=== PATIENT | female | born 1995 | race Caucasian/White ===

== ENCOUNTER → 2020-07-02 09:55 | Outpatient (BNVA) | payer OTHER, SELFPAY | PROVIDERS: Family Provider Family Medicine; Visit Provider Nurse Practitioner Women's Health | DX: N93.0 Postcoital and contact bleeding (principal) | CPT/HCPCS: 87491; 87591; 87661 ==

== ENCOUNTER → 2020-08-09 14:35 | Outpatient (BNVA) | payer OTHER, SELFPAY | PROVIDERS: Family Provider Family Medicine; Visit Provider Nurse Practitioner Women's Health | DX: Z30.430 Encounter for insertion of intrauterine contraceptive device (principal) | CPT/HCPCS: 81025 ==

== ENCOUNTER → 2021-12-26 10:04 | Outpatient (BNVA) | payer OTHER, SELFPAY | PROVIDERS: Family Provider Family Medicine; Visit Provider Nurse Practitioner Family | DX: Z20.822 Contact with and (suspected) exposure to COVID-19 (principal); R68.89 Other general symptoms and signs | CPT/HCPCS: 87400; 87635 ==

== ENCOUNTER → 2023-04-08 09:00 | Outpatient (BNVA) | payer MEDICAID, SELFPAY | PROVIDERS: Family Provider Family Medicine; Visit Provider Nurse Practitioner Women's Health | DX: Z12.4 Encounter for screening for malignant neoplasm of cervix (principal); Z30.9 Encounter for contraceptive management, unspecified; Z30.432 Encounter for removal of intrauterine contraceptive device | CPT/HCPCS: 88175 ==

== ENCOUNTER → 2023-05-27 09:24 | Outpatient (BNVA) | payer MEDICAID, SELFPAY | PROVIDERS: Family Provider Family Medicine; PCP Family Medicine; Visit Provider Nurse Practitioner Women's Health | DX: N92.6 Irregular menstruation, unspecified (principal); Z30.9 Encounter for contraceptive management, unspecified | CPT/HCPCS: 84702 ==

== ENCOUNTER → 2023-07-07 13:49 | Outpatient (BNVA) | payer MEDICAID, SELFPAY | PROVIDERS: Family Provider Family Medicine; PCP Family Medicine; Visit Provider Nurse Practitioner Women's Health | DX: N92.6 Irregular menstruation, unspecified (principal) | CPT/HCPCS: 84144 ==

== ENCOUNTER → 2024-04-21 09:35 | Outpatient (BNVA) | payer OTHER, SELFPAY | PROVIDERS: Family Provider Family Medicine; PCP Family Medicine; Visit Provider Nurse Practitioner Women's Health | DX: N92.6 Irregular menstruation, unspecified (principal); E28.2 Polycystic ovarian syndrome | CPT/HCPCS: 81025; 83036; 84439; 84443; 84702 ==

== ENCOUNTER → 2024-04-27 08:28 | Outpatient (BNVA) | payer OTHER, SELFPAY | PROVIDERS: Family Provider Family Medicine; PCP Family Medicine; Visit Provider Nurse Practitioner Women's Health | DX: Z34.90 Encounter for supervision of normal pregnancy, unspecified, unspecified trimester (principal) | CPT/HCPCS: 76801 ==

== ENCOUNTER → 2024-05-02 09:50 | Outpatient (BNVA) | payer OTHER, SELFPAY | PROVIDERS: Family Provider Family Medicine; PCP Family Medicine; Visit Provider Nurse Practitioner Women's Health | DX: Z34.90 Encounter for supervision of normal pregnancy, unspecified, unspecified trimester (principal) | CPT/HCPCS: 80307; 84315; 85025; 86592; 86762; 86803; 86850; 86900; 87086; 87340; 87806 ==

== ENCOUNTER → 2024-05-29 11:12 | Outpatient (BNVA) | payer OTHER, SELFPAY | PROVIDERS: Family Provider Family Medicine; PCP Family Medicine; Visit Provider Nurse Practitioner Women's Health | DX: Z34.80 Encounter for supervision of other normal pregnancy, unspecified trimester (principal) | CPT/HCPCS: 76801; 84315; 87491; 87591 ==

== ENCOUNTER → 2024-07-20 09:46 | Outpatient (BNVA) | payer OTHER, MEDICAID, SELFPAY | PROVIDERS: Family Provider Family Medicine; PCP Family Medicine; Visit Provider Nurse Practitioner Women's Health | DX: Z36.2 Encounter for other antenatal screening follow-up (principal); Z3A.20 20 weeks gestation of pregnancy | CPT/HCPCS: 76805 ==

== ENCOUNTER → 2024-08-17 09:23 | Outpatient (BNVA) | payer OTHER, MEDICAID, SELFPAY | PROVIDERS: Family Provider Family Medicine; PCP Family Medicine; Visit Provider Nurse Practitioner Women's Health | DX: Z34.80 Encounter for supervision of other normal pregnancy, unspecified trimester (principal); Z36.2 Encounter for other antenatal screening follow-up; Z3A.23 23 weeks gestation of pregnancy | CPT/HCPCS: 76816; 82950; 84315; 87491; 87591 ==

== ENCOUNTER → 2024-09-15 09:21 | Outpatient (BNVA) | payer OTHER, MEDICAID, SELFPAY | PROVIDERS: Family Provider Family Medicine; PCP Family Medicine; Visit Provider Obstetrics & Gynecology | DX: Z34.80 Encounter for supervision of other normal pregnancy, unspecified trimester (principal) | CPT/HCPCS: 84315; 85025 ==

== ENCOUNTER 2024-10-30 12:52 | Outpatient (CLI) | payer OTHER, MEDICAID, SELFPAY ==
[2024-10-30 13:10] VITALS: BP 130/88; PULSE 101
[2024-10-30 13:15] VITALS: BMI 33.5
[2024-10-30 13:48] LABS: Bilirubin Urine Negative (Negative); Blood Urine Negative (Negative); Glucose Urine UA Negative (Normal); Ketones Urine Trace (Negative); Leukocyte Esterase Urine Negative (Negative); Nitrate Urine Negative (Negative); Protein Urine 1+ (Negative); Urine Appearance Clear (CLEAR); Urine Color Dark Yellow (Yellow)
[2024-10-30 13:56] LABS: Add Urine Microscopic? YES; Bacteria Urine None Seen /hpf; Hyaline Casts Urine 3.71 /lpf; RBC Urine 0-2 /hpf (0-2); Squamous Epithelial Cell Urine 0-5 /hpf (0-5); WBC Urine 0-5 /hpf (0-5)
[2024-10-30 14:27] LABS: Specific Gravity, Urine 1.033 (1.005-1.030)
[2024-10-30 14:28] LABS: UA Slide Review UA Slide Review Perf
[2024-10-30 14:35] VITALS: BP 124/77; PULSE 88
[2024-10-30 16:48] VITALS: BP 123/71; PULSE 75
== END 2024-10-30 16:58 | disposition home or self-care (01) ==
LOC: OPOB 12:59 → OBGYN 13:05
PROVIDERS: Family Provider Family Medicine; PCP Family Medicine; Visit Provider Obstetrics & Gynecology
DX: O26.899 Other specified pregnancy related conditions, unspecified trimester (principal); Z3A.00 Weeks of gestation of pregnancy not specified; N89.8 Other specified noninflammatory disorders of vagina
CPT/HCPCS: 59025; 81001; 99211

== ENCOUNTER → 2024-11-10 08:03 | Outpatient (BNVA) | payer OTHER, MEDICAID, SELFPAY | PROVIDERS: Family Provider Family Medicine; PCP Family Medicine; Visit Provider Nurse Practitioner Women's Health | DX: Z34.80 Encounter for supervision of other normal pregnancy, unspecified trimester (principal) | CPT/HCPCS: 84315; 87081 ==

== ENCOUNTER → 2024-11-15 09:31 | Outpatient (BNVA) | payer OTHER, MEDICAID, SELFPAY | PROVIDERS: Family Provider Family Medicine; PCP Family Medicine; Visit Provider Nurse Practitioner Women's Health | DX: Z36.9 Encounter for antenatal screening, unspecified (principal) | CPT/HCPCS: 76816 ==

== ENCOUNTER → 2024-11-20 10:11 | Outpatient (BNVA) | payer OTHER, MEDICAID, SELFPAY | PROVIDERS: Family Provider Family Medicine; PCP Family Medicine; Visit Provider Nurse Practitioner Women's Health | DX: O41.00X0 Oligohydramnios, unspecified trimester, not applicable or unspecified (principal) | CPT/HCPCS: 76819 ==

== ENCOUNTER 2024-11-21 19:00 | Outpatient (CLI) | payer OTHER, MEDICAID, SELFPAY ==
[2024-11-21 19:16] VITALS: BP 140/80; PULSE 76
--- NOTE | 2024-11-21 19:43 | USR_ITS ---
PROCEDURE INFORMATION: Exam: US Biophysical Profile Without Non-Stress Test Exam date and time: 11/21/2024 7:58 PM Age: 29 years old Clinical indication: Pain indication: Diffuse abdominal pain, only bpp is ordered. ; Additional info: Low tani, abd tenderness TECHNIQUE: Imaging protocol: US biophysical profile without non-stress testing. COMPARISON: US OB BPP wo NST [id number] 11/20/2024 10:17 AM FINDINGS: heart rate: 131 bpm presentation and position: Cephalic Placenta: Anterior grade 1 placenta without previa. Amniotic fluid (Qualitative): Luminal volume. Amniotic fluid index: TANI is 9.56 cm. Maximum vertical pocket 4.8 cm. BIOPHYSICAL PROFILE: breathing (BPP): 2 /2 gross body movement (BPP): 2 /2 tone (BPP): 2 /2 Amniotic fluid (BPP): 2 /2 Biophysical profile score (BPP): 8 /8 MATERNAL ANATOMY: Cervix: Cervical length measures 3.5 cm. US/US OB BPP NST [id number] IMPRESSION: 1. Biophysical profile score 8/8. 2. Low-normal amniotic fluid quantity.
== END 2024-11-21 20:46 | disposition home or self-care (01) ==
LOC: OPOB 19:01 → OBGYN 19:02
PROVIDERS: Family Provider Family Medicine; PCP Family Medicine; Visit Provider Obstetrics & Gynecology
DX: O26.899 Other specified pregnancy related conditions, unspecified trimester (principal); Z3A.00 Weeks of gestation of pregnancy not specified
CPT/HCPCS: 59025; 76819; 99211

== ENCOUNTER → 2024-11-24 09:27 | Outpatient (BNVA) | payer OTHER, MEDICAID, SELFPAY | PROVIDERS: Family Provider Family Medicine; PCP Family Medicine; Visit Provider Obstetrics & Gynecology | DX: Z34.80 Encounter for supervision of other normal pregnancy, unspecified trimester (principal) | CPT/HCPCS: 84315 ==

== ENCOUNTER → 2024-12-01 09:23 | Outpatient (BNVA) | payer OTHER, MEDICAID, SELFPAY | PROVIDERS: Family Provider Family Medicine; PCP Family Medicine; Visit Provider Obstetrics & Gynecology | DX: Z34.80 Encounter for supervision of other normal pregnancy, unspecified trimester (principal) | CPT/HCPCS: 84315 ==

== ENCOUNTER 2024-12-05 22:29 | Inpatient (IN) | payer OTHER, MEDICAID, SELFPAY ==
[2024-12-05 22:01] VITALS: BMI 32.9
[2024-12-05 22:11] VITALS: BP 128/90; PULSE 94
[2024-12-05 22:59] LABS: Basophils % 0.1 %; Eosinophils % 0.4 %; Hematocrit 37.3 % (36-47); Lymphocytes # 2.3 10^3/uL (0.8-4.8); Lymphocytes % 27.8 %; Mean Corpuscular HGB Conc 33.2 g/dL (30-55); Mean Corpuscular Hemoglobin 29.2 pg (27-33); Mean Platelet Volume 13.7 fL (7.4-10.4); Monocytes # 0.5 10^3/uL (0.2-0.9); Monocytes % 5.8 %; Neutrophils % 65.4 %; Nucleated Red Blood Cells % 0 %; Platelet Count 144 10^3/cmm (157-399); Red Blood Count 4.24 10^6/uL (3.85-5.65); Red Cell Distribution Width 12.8 % (12.1-15.1); White Blood Count 8.26 10^3/uL (3.29-11.43)
[2024-12-05 23:11] VITALS: BP 121/73; PULSE 89
[2024-12-05] MEDS: miSOPROStol 100 mcg tablet 25 MCG VAGINAL (23:36)
[2024-12-05 23:41] VITALS: BP 120/79; PULSE 83
[2024-12-06] VITALS (89 sets, daily range): BP systolic 91–153; BP diastolic 47–98; PULSE 58–181; RESP 16; TEMP 36.2–36.8; O2SAT 97–100
[2024-12-06] MEDS: dextrose 5%-lactated ringers 1,000 ML 125 ML IV (03:00)
[2024-12-06] MEDS: miSOPROStol 100 mcg tablet 25 MCG VAGINAL (04:00)
[2024-12-06] MEDS: ondansetron 2 mg/ML SDV 2 mL 4 MG IVP ×2 (05:58→10:14)
[2024-12-06] MEDS: sodium chloride 0.9% 1,000 ML 999 ML IV ×2 (06:01→07:05)
[2024-12-06] MEDS: ROPivacaine syringe 100 MG/50 ML SYRINGE 10 MG EPIDURAL ×2 (07:28→10:14)
--- NOTE | 2024-12-06 07:38 | P.ANESASSM_ITS ---
Pre-Anesthetic Assessment Height/Weight: Height 1.65 m Weight 89.811 kg Temp Pulse BP Pulse Ox O2 Del Method 97.2 F L 76 121/58 99 Room Air 12/06/24 07:36 12/06/24 07:35 12/06/24 07:33 12/06/24 07:35 12/05/24 22:25 Epidural Familial anesthetic complications: None Was Beta Anna taken within 24 hours: N/A Was Clonidine taken within 24 hours: N/A Social No alcohol and No tobacco Exam alert, oriented x 3, clear to auscultation bilaterally and regular rate & rhythm Airway Mallampati: Class I Dentition: full Metabolic PCOS Anesthetic Plan ASA status: 2 Anesthesia: Regional (specify below) Risk of > 500 ml blood loss (7ml/kg in children): Yes, adequate IV access and fluids planned Medications/Allergies Home Medications Medication Instructions Recorded Confirmed Last Taken Type prenat.vits,[place],[id number]-[id number] 1 tab PO DAILY 04/08/23 12/01/24 10/30/24 History sertraline 25 mg tablet (Zoloft) 25 mg PO DAILY #30 tabs 08/17/24 12/01/24 10/30/24 Rx amitriptyline 25 mg tablet 25 mg PO DAILY #30 tabs 09/27/24 12/01/24 Unknown Rx propranolol 20 mg tablet 20 mg PO BID #60 tabs 09/27/24 12/01/24 Unknown Rx tylenol PO 09/27/24 12/01/24 Unknown History omeprazole 40 mg capsule,delayed 40 mg PO DAILY #30 caps 11/10/24 12/01/24 Unknown Rx release Allergies Allergy/AdvReac Type Severity Reaction Status Date / Time latex Allergy Mild Rash Verified 12/01/24 07:36 Penicillins Allergy Mild Rash Verified 12/01/24 07:36 Current Medications Generic Name Dose Route Start Last Admin Trade Name Freq PRN Reason Stop Dose Admin Dextrose/Lactated Ringer's 1,000 mls @ 125 mls/hr 12/05/24 22:30 12/06/24 06:01 Dextrose 5%-Lactated Ringers IV 0 mls/hr .Q8H JOSE Infusion Sodium Chloride 1,000 mls @ 999 mls/hr 12/06/24 05:28 12/06/24 07:05 Sodium Chloride 0.9% IV 999 mls/hr .Q1H1M PRN Administration See label comments Ondansetron HCl 4 mg 12/05/24 22:29 12/06/24 05:58 Ondansetron 2 Mg/Ml Sdv 2 Ml IVP 4 mg Q4H PRN Administration NAUSEA AND VOMITING PFSH Anesthesia Medical History Migraine without aura No pertinent past medical history neghx: htn,dm,thyroid,dvt/pe Surgical History H/O dilation and curettage (~11/2023) blighted ovum of twin preg- performed by [facility] History of tonsillectomy (2013) Family History Grandmother Breast cancer Paternal Hyperlipidemia Paternal Diabetes Paternal/Maternal Family/Other Breast cancer Maternal aunt Father Hypertension Grandfather Diabetes Paternal/Maternal Denies family history of Colon cancer Ovarian cancer Heart disease Family history of thyroid problem Uterine cancer Stroke Social History Smoking and tobacco/nicotine status: never used tobacco/nicotine Female Reproductive History : 4 Data Anesthesia 12/05/24 20:22 Short CBC 12/05/24 Range/Units 20:22 WBC 8.26 (3.29-11.43) 10^3/uL Hgb 12.40 (11.27-16.99) g/dL Hct 37.3 (36-47) % MCV 88.0 (85-98) fl Plt Count 144 L (157-399) 10^3/cmm Neut % (Auto) 65.4 % Neut # (Auto) 5.40 (1.8-7.7) 10^3/uL Blood Bank 12/05/24 20:22 Blood Type O Positive Rho(D) Type Rh positive Antibody Screen Negative Cardiac Studies: 2 No Data to Display
--- NOTE | 2024-12-06 07:40 | ANES.PROC ---
Anesthesia Procedures Procedure/Date: 12/06/24 Epidural: Time Out Performed: Yes Consents Signed: Procedure Consent Consent: requested by attending/covering physician, from patient, from other, risks and benefits reviewed and patient agrees to proceed Lumbar Level: L3-L4 Epidural position: sitting Epidural procedure: sterile prep of area, 1% lidocaine to numb the area, 18 g needle, negative for paresthesia passed, neg for paresthesia, test dose given, 1.5% xylocaine 1:200k epi (5), 0.2% Ropivacaine bolus ml (5), placed PCEA, no systemic response, sterile dressing applied, L.U.D. no apparent complications and 0.2% Ropiavacaine @ mls/hr (10) Additional Comments: 3 attempts, VICTORINO at 6 cm, threaded to 12 cm, patient reported decreased pain of contractions and tingling in feet, BP stable
--- NOTE | 2024-12-06 11:54 | P.PCNOB_ITS ---
Delivery Note: Date of delivery: December 06, 2024 Pre-delivery diagnoses: Term Post-delivery diagnoses: Term delivered Procedure: Spontaneous vaginal delivery Delivering Physician: Angel Allen MD Delivery: The patient was noted to be complete and pushing, so was placed in the dorsal lithotomy position, prepped and draped in the usual sterile fashion for a vaginal delivery. Pt. Noted to have epidural anesthesia. At 1108 the patient delivered a viable term male weighing 3340 g with scores of 8 and 9 at one and five minutes, respectively. The vertex was delivered spontaneously over intact perineum. The patient was asked to push and the head delivered spontaneously in the NIRMALA position, over an intact perineum. A nuchal cord was checked and 2 nuchal cords noted, and relievedt around head as ne cessary. The anterior shoulder delivered easily and the posterior shoulder followed. The remainder of the infant was easily delivered and the oropharynx and nasopharynx was bulb suctioned. The infant was noted to have spontaneous cry and spontaneous movement of all four extremities. The cord was clamped x 2 and cut and noted to have 2 arteries and one vein. The was passed to the mother's abdomen where nursing personnel were in attendance. Cord blood sample was then obtained. The placenta delivered intact spontaneously and the uterus was explored. 20 units of Pitocin was placed in the IV bag to firm the uterus. Examination of the cervix and vaginal vault did not reveal any lacerations. Examination of the perineum showed no lacerations. The vaginal pack was then removed. The patient tolerated this procedure well, and recovered in L&D with her infant in their LDR room. All sponge and needle counts were correct. Post-Delivery Status: Good and stable History History History 4 Term 1 0 Miscarriages/Ectopic 2 Living Children 1 A&P Assessment and plan (1) Term delivered: Coding Level of Care Code Acute Code for Chg Fwd Diagnoses Term delivered O80
--- NOTE | 2024-12-06 12:20 | PM.OPHPUD ---
Labor & Delivery H&P Update Date of Procedure: December 07, 2024 Date H&P Performed: 12/01/24 H&P update information: I have reviewed H&P completed within last 30 days, I have examined patient prior to procedure and No changes to prior documentation Admission Diagnosis:
[2024-12-06] MEDS: ibuprofen 800 mg tablet PO ×2 (14:51→20:36)
[2024-12-06] MEDS: docusate sodium 100 mg Capsule PO (18:10)
[2024-12-06] MEDS: acetaminophen 325 mg Tablet 650 MG PO (18:10)
[2024-12-07 00:25] LABS: Hematocrit 32.1 % (36-47); Mean Corpuscular HGB Conc 32.7 g/dL (30-55); Mean Corpuscular Hemoglobin 29.6 pg (27-33); Mean Corpuscular Volume 90.4 fl (85-98); Mean Platelet Volume 13.8 fL (7.4-10.4); Platelet Count 81 10^3/cmm (157-399); Red Blood Count 3.55 10^6/uL (3.85-5.65); Red Cell Distribution Width 13.2 % (12.1-15.1); White Blood Count 9.09 10^3/uL (3.29-11.43)
[2024-12-07 01:41] LABS: Hematocrit 32.8 % (36-47); Mean Corpuscular HGB Conc 32.9 g/dL (30-55); Mean Corpuscular Hemoglobin 29.5 pg (27-33); Mean Corpuscular Volume 89.6 fl (85-98); Platelet Count 107 10^3/cmm (157-399); Red Blood Count 3.66 10^6/uL (3.85-5.65); Red Cell Distribution Width 13.1 % (12.1-15.1); White Blood Count 8.59 10^3/uL (3.29-11.43)
[2024-12-07 05:25] VITALS: BP 128/85; PULSE 66; RESP 16; TEMP 36.9
[2024-12-07] MEDS: HYDROcodone-acetaminophen 5-325 mg Tablet PO (06:45)
--- NOTE | 2024-12-07 08:00 | ANE.PACU2 ---
Inpatient post-anesthesia follow up: Airway intact: Yes Vital signs: Temperature 97.7 F Pulse Rate 69 Respiratory Rate 16 Blood Pressure 142/85 Pulse Oximetry 98 Oxygen Delivery Me thod Room Air Oxygen Flow Rate Fraction of Inspir ed Oxygen Hydration adequate: Yes Nausea and vomiting: No Pain level: 1 Mental status: Baseline Epidural Start/End: Epidural Start Date: 12/05/24 Epidural Start Time: 06:45 Epidural End Date: 12/06/24 Epidural End Time: 11:20
[2024-12-07] MEDS: sertraline 50 mg Tablet 25 MG PO (09:23)
[2024-12-07] MEDS: docusate sodium 100 mg Capsule PO (09:23)
[2024-12-07] MEDS: ibuprofen 800 mg tablet PO (09:23)
[2024-12-07] MEDS: PRENATAL VIT NO.130/IRON/FOLIC 1 EACH TABLET PO (09:24)
--- NOTE | 2024-12-07 15:18 | PM.OBGYDC ---
Discharge Providers ENTRY LEVEL ACCOUNTANT Date of Admission: 12/05/24 22:29 Date of Discharge: 12/07/24 Attending Provider at Admission: Angel Allen MD Attending Provider at Discharge: Angel Allen MD Primary ENTRY LEVEL ACCOUNTANT: Angel Allen MD Primary Care Provider: Temo Mccloud DO Diagnoses at Discharge Discharge Diagnosis (1) Term delivered: Status: Acute Reason for Visit Reason for Visit: IOL Hospital Course Hospital Course Mrs. Cherry 29-year-old female G4, P1 with estimated stational age at 39 weeks admitted for elective induction. She progressed to have a spontaneous vaginal delivery without complication. observation was uneventful. She is afebrile and hemodynamically stable day 1. Tolerating diet well. Ambulating without difficulty. She was counseled regarding pelvic rest for 6 weeks (no sex, no tampons, no vaginal douches). Return to the emergency room if any fever, increased bleeding or pain. Information Peripartum Data: Delivery Method: Vaginal Physical Exam Narrative: GA; alert and oriented x 3 HEENT: normal Breasts: engorged Nipples - skin intact Lungs; clear to auscultation Heart: regular rhythm, no murmurs. Abd: Appropriately tender. BS+. Uterine fundus below umbilicus. No Fundal Tenderness. Perineum: normal lochia. Extremities: no edema, no cyanosis, no tenderness. Urinary Catheter Management: Reed: Cath Placed During This Visit: yes, but has since been removed by the nurse Reason for Continuing Indwelling Catheter: Decision to DC Catheter Urinary Catheter Date of Insertion: 12/06/24 Urinary Catheter Time of Insertion: 08:00 Date Urinary Catheter Removed: 12/06/24 Time Urinary Catheter Discontinued: 11:42 History History History 4 Term 1 0 Miscarriages/Ectopic 2 Living Children 1 Discharge Data Studies Completed and Pending Laboratory Results WBC 8.59 10^3/uL (3.29-11.43) 12/07/24 01:35 RBC 3.66 10^6/uL (3.85-5.65) L 12/07/24 01:35 Hgb 10.80 g/dL (11.27-16.99) L 12/07/24 01:35 Hct 32.8 % (36-47) L 12/07/24 01:35 MCV 89.6 fl (85-98) 12/07/24 01:35 MCH 29.5 pg (27-33) 12/07/24 01:35 MCHC 32.9 g/dL (30-55) 12/07/24 01:35 RDW 13.1 % (12.1-15.1) 12/07/24 01:35 Plt Count 107 10^3/cmm (157-399) L D 12/07/24 01:35 MPV 13.0 fL (7.4-10.4) H 12/07/24 01:35 Neut % (Auto) 65.4 % 12/05/24 20:22 Lymph % (Auto) 27.8 % 12/05/24 20:22 Cedar % (Auto) 5.8 % 12/05/24 20:22 Eos % (Auto) 0.4 % 12/05/24 20:22 Baso % (Auto) 0.1 % 12/05/24 20:22 Neut # (Auto) 5.40 10^3/uL (1.8-7.7) 12/05/24 20:22 Lymph # (Auto) 2.3 10^3/uL (0.8-4.8) 12/05/24 20:22 Cedar # (Auto) 0.5 10^3/uL (0.2-0.9) 12/05/24 20:22 Eos # (Auto) 0.0 10^3/uL (0.0-0.8) 12/05/24 20:22 Baso # (Auto) 0.0 10^3/uL (0.0-0.1) 12/05/24 20:22 Nucleated RBC % (auto) 0 % 12/05/24 20:22 Nucleated RBCs # 0.0 /100WBC 12/05/24 20:22 Blood Type O Positive 12/05/24 20:22 Rho(D) Type Rh positive 12/05/24 20:22 Antibody Screen Negative 12/05/24 20:22 Vitals Last Vital Signs Temp 98.4 F 12/07/24 05:25 Pulse 66 12/07/24 05:25 Resp 16 12/07/24 05:25 BP 128/85 12/07/24 05:25 Pulse Ox 97 12/06/24 21:40 O2 Del Method Room Air 12/07/24 05:25 Results Labs OB ([facility]): Obstetrics US 11/15/24 Obstetrics US/Biophysical Profile 11/21/24 Blood Type O Positive 12/05/24 Antibody Screen Negative 12/05/24 Hct 32.8 % (36-47) L 12/07/24 Hgb 10.80 g/dL (11.27-16.99) L 12/07/24 Rho(D) Type Rh positive 12/05/24 Plt Count 107 10^3/cmm (157-399) L 12/07/24 Hep Bs Antigen Non-reactive (Nonreactive) 05/02/24 Hepatitis C Antibody Non-reactive (Nonreactive) 05/02/24 Rubella IgG Antibody 82.8 IU/mL (0.0-10.0) H 05/02/24 RPR Nonreactive (Nonreactive) 05/02/24 HIV 1&2 Ab & HIV 1 Ag Non-reactive (Non-Reactiv) 05/02/24 TSH 2.04 uIU/mL (0.27-4.20) 04/21/24 Free T4 1.03 ng/dL (0.82-1.77) 04/21/24 C.trachomatis RNA (TMA) Not detected (NOT DETECTED) 08/17/24 N.gonorrhoeae RNA (TMA) Not detected (NOT DETECTED) 08/17/24 T. vaginalis Amp RNA Not detected (NOT DETECTED) 08/17/24 Chlamydia/GC Comment See note 08/17/24 Cystic Fibrosis Screen Negative 06/12/24 Glucose 1 Hr 50 gm 139 mg/dL (85-140) 08/17/24 Hemoglobin A1c 4.8 % (4.0-6.0) 04/21/24 Progesterone 0.203 ng/mL 07/07/23 Ser , Semi-Qnt 65391.00 mIU/mL 04/21/24 HCG, Qual Positive (Negative) H 04/21/24 Urine Opiates Screen Negative ng/mL (Negative) 05/02/24 Ur Barbiturates Screen Negative ng/mL (Negative) 05/02/24 Ur Phencyclidine Scrn Negative ng/mL (Negative) 05/02/24 Ur Amphetamines Screen Negative ng/mL (Negative) 05/02/24 U Benzodiazepines Scrn Negative ng/mL (Negative) 05/02/24 Urine Cocaine Screen Negative ng/mL (Negative) 05/02/24 U Marijuana (THC) Screen Negative ng/mL (Negative) 05/02/24 Micro Urine Specimen 05/02/24 Pap Smear Interpret See note 04/08/23 Discharge Plan Discharge Patient Disposition: Home Condition: Stable Prescriptions: New ferrous sulfate [Iron (ferrous sulfate)] 325 mg (65 mg iron) tablet 325 mg PO BID Qty: 60 0RF acetaminophen 325 mg capsule 325 mg PO Q4H PRN (Reason: fever or pain) Qty: 60 0RF ibuprofen 800 mg tablet 800 mg PO TID PRN (Reason: pain) Qty: 60 0RF Continued prenat.vits,[place],[id number] Tablet 1 tab PO DAILY sertraline [Zoloft] 25 mg tablet 25 mg PO DAILY Qty: 30 1RF omeprazole 40 mg capsule,delayed release(DR/EC) 40 mg PO DAILY Qty: 30 2RF tylenol PO amitriptyline 25 mg tablet 25 mg PO DAILY Qty: 30 3RF Rx Instructions: Take at bedtime propranolol 20 mg tablet 20 mg PO BID Qty: 60 5RF Discharge Orders: Discharge Order (Routine); Ordered 12/07/24 Ordered By: Angel Allen Referrals: Anegl Allen MD [Physician] - 01/19/25 2:30 pm Discharge Diet: Usual diet Discharge Activity: Limit activity as instructed Patient Instructions: Depression (DC), Opioid Safety (DC), Preeclampsia and Eclampsia After Delivery (GEN), Hemorrhage (DC), OB Discharge Report, OB Food/Drug Interaction Guide, Opioid Safety, OB Home Care, OB Vaginal Deliveries - [facility], Depression Activity Restrictions/Additional Instructions: 1. Please call [facility] on next working day to make your appointment in 6 weeks. 2. Please stay home until you come back to the clinic on first post-hospatilization check up. 3. Please follow instructions on your medications CAREFULLY. 4. If you have abdominal incision, do not cover it unless dressing is necessary because of drainage. OK to shower, but avoid bath. Leave steri-strips until they fall off. If they are still on one week after surgery, you may remove them. 5. If you had vaginal surgery or vaginal repair, Dr. Allen may instruct you to take SITZ bath. 6. Yellow, blood tinged odorous vaginal discharge is usually normal after hysterectomy or vaginal surgeries. 7. No SEXUAL INTERCOURSE, tampons, or douches until you are completely released from the post-operative care. 8. Avoid constipation by eating right and maybe using some Metamucil or Milk of Magnesia. 9. All prescription refills are given during the working hours. Please do no wait till it runs out. Call the clinic at [phone] before your medication runs out. The clinic will get in touch with your doctor to prescribe medications if necessary. 10. Please remain within 40 mile radius from our hospital because emergencies do happen now and then during the post-operative period. 11. If you have stairs at home, take one step at a time slowly and minimize the number of trips. It helps to stay in one floor for the next few days. No lifting except what you can lift by one hand until you are released from the post-operative care. 12. Driving is discouraged until you are well healed. It may be 3-4 weeks before you feel strong enough to drive. You should be able to turn and look through the rear window without pain and you should be able to push the brake pedal very hard without pain before you drive. No fast rules, but SAFETY should be your primary concern. DO NOT drive if you are on sedating medications such as narcotics. 13. Call the clinic (during working hours) to make urgent appointment or go to the Emergency room, if any of the following occurs: i. Vaginal bleeding becomes heavy, more than a period. ii. Incision becomes red and sore, or drains pus. iii. Your TEMPERATURE is over 100.4F or you have chill. iv. IV site becomes red and swollen (a little ``knot?? is usually OK) v. Persistent nausea and vomiting vi. Persistent constipation or diarrhea vii. Rash or allergic reaction to medications. Discharge Attestations ENTRY LEVEL ACCOUNTANT Time Spent in Discharge Care*: greater than 30 min Coding Level of Care Code Acute Code for Chg Fwd Diagnoses Term delivered O80
[2024-12-07 16:25] VITALS: BP 142/85; PULSE 69; RESP 16; TEMP 36.5; O2SAT 98
== END 2024-12-07 16:40 | disposition home or self-care (01) | DRG 807 ==
LOC: OPOB 12-06 07:33 → OBGYN 12-06 07:33
PROVIDERS: Admitting Provider Obstetrics & Gynecology; Family Provider Family Medicine; PCP Family Medicine; Visit Provider Obstetrics & Gynecology
DX: O69.81X0 Labor and delivery complicated by cord around neck, without compression, not applicable or unspecified (principal); Z37.0 Single live birth; O99.284 Endocrine, nutritional and metabolic diseases complicating childbirth; E28.2 Polycystic ovarian syndrome; Z3A.39 39 weeks gestation of pregnancy
CPT/HCPCS: 36415; 51702; 59025; 59409; 85025; 85027; 86850; 86900; 96374; 96376; J2405; J2795; J7030; J7121

== ENCOUNTER → 2025-01-25 13:47 | Outpatient (BNVA) | payer OTHER, MEDICAID, SELFPAY | PROVIDERS: Family Provider Family Medicine; PCP Family Medicine; Visit Provider Obstetrics & Gynecology | DX: Z30.430 Encounter for insertion of intrauterine contraceptive device (principal) | CPT/HCPCS: 81025 ==